=== PATIENT | female | born 1935 | race Caucasian/White ===

== ENCOUNTER 2017-01-17 05:35 | Day surgery (SDC) | payer OTHER, MEDICARE ==
[~2017-01-17] VITALS: Ht 156.2 cm; Wt 93.9 kg
[~2017-01-17 05:35] MED LIST: ASPIR 8181 M1 PO; EYE VITAMIN-MI1 EACH PO; HYDROCHLOROTHIA25 MG PO; LEVO-T50 MCG PO; OMEPRAZOLE40 M1 PO; RED YEAST RICE600 MG PO; TOPROL XL200 MG PO; TRICOR145 MG PO; VITAMIN C1000 MG PO; VITAMIN D2000 UNI1 PO; ZESTRIL40 MG PO
[2017-01-17 07:30] VITALS: BP 170/60
[2017-01-17] MEDS ORDERED: NORCO 5/3251 TABLET PO (12:00)
[2017-01-17 14:59] VITALS: BP 191/85
[2017-01-17 15:55] VITALS: BP 178/79
[2017-01-17 16:23] VITALS: BP 170/76
== END 2017-01-17 16:40 | disposition home or self-care (01) ==
LOC: SDC 05:35 → NUC 07:30 → SDC 08:00 → NUC 08:00 → SDC 16:40
DX: C50.812 Malignant neoplasm of overlapping sites of left female breast (principal); Z17.0 Estrogen receptor positive status [ER+]; Z92.3 Personal history of irradiation; I25.10 Atherosclerotic heart disease of native coronary artery without angina pectoris; Z95.5 Presence of coronary angioplasty implant and graft; G47.30 Sleep apnea, unspecified; Z86.73 Personal history of transient ischemic attack (TIA), and cerebral infarction without residual deficits; E11.9 Type 2 diabetes mellitus without complications; Z90.710 Acquired absence of both cervix and uterus; Z80.3 Family history of malignant neoplasm of breast; Z80.41 Family history of malignant neoplasm of ovary
CPT/HCPCS: 78195; 78999; 88305; 88307; A9541; J0690; J1170; J2405; J3010; S0020